=== PATIENT | male | born 1980 | race Caucasian/White ===

== ENCOUNTER 2018-02-16 09:08 | Emergency (ER) | payer BC ==
[2018-02-16] MEDS ORDERED: Bicillin LA 1.2 MILLION UNITS/2 ML SYRINGE ONE (09:36)
[2018-02-16] MEDS ORDERED: Dexamethasone 10 MG/ML VIAL ONE (09:36)
== END 2018-02-16 10:05 | disposition home or self-care (01) ==
LOC: SCSER 09:08
DX: J02.9 Acute pharyngitis, unspecified (principal); H66.91 Otitis media, unspecified, right ear; K21.9 Gastro-esophageal reflux disease without esophagitis; E78.5 Hyperlipidemia, unspecified; F17.210 Nicotine dependence, cigarettes, uncomplicated
CPT/HCPCS: 96372; J0561; J1100

== ENCOUNTER 2018-02-18 12:25 | Emergency (ER) | payer BC | END 2018-02-18 12:56 | disposition home or self-care (01) | LOC: SCSER 12:25 | DX: F17.210 Nicotine dependence, cigarettes, uncomplicated; J31.0 Chronic rhinitis; E78.5 Hyperlipidemia, unspecified; J02.9 Acute pharyngitis, unspecified; Z79.899 Other long term (current) drug therapy; K21.9 Gastro-esophageal reflux disease without esophagitis | CPT/HCPCS: 99283 ==

== ENCOUNTER 2019-02-23 20:54 | Emergency (ER) | payer BC | END 2019-02-23 22:25 | disposition home or self-care (01) | LOC: ERS 20:54 | DX: J11.1 Influenza due to unidentified influenza virus with other respiratory manifestations (principal); K21.9 Gastro-esophageal reflux disease without esophagitis; E78.5 Hyperlipidemia, unspecified; F41.9 Anxiety disorder, unspecified; F17.210 Nicotine dependence, cigarettes, uncomplicated; Z79.899 Other long term (current) drug therapy | CPT/HCPCS: 99283 ==